=== PATIENT | male | born 1950 | race Caucasian/White ===

== ENCOUNTER 2017-01-25 12:29 | Emergency (ER) | payer MEDICARE ==
[2017-01-25 13:14] LABS: HEMOGLOBIN 14.6 gm/dl (14.0-17.5); RED BLOOD COUNT 4.69 M/UL (4.20-5.50); WHITE BLOOD COUNT 7.6 K/UL (4.5-11.0)
[2017-01-25 13:40] LABS: BUN/CREATININE RATIO 20 (0-10)
[2017-03-02] MEDS ORDERED: ASPIRIN325 MG PO (19:05)
[2017-03-07] MEDS ORDERED: PLAVIX 75 MG TA75 MG PO (13:56)
[2017-03-07] MEDS ORDERED: LIPITOR TAB 2020 MG PO (13:56)
[2017-03-07] MEDS ORDERED: FEOSOL325 MG PO (13:57)
[2017-03-07] MEDS ORDERED: LASIX20 MG PO (13:58)
[2017-03-07] MEDS ORDERED: IMDUR ER TAB 3030 MG PO (13:58)
[2017-03-07] MEDS ORDERED: TOPROL XL 100100 MG PO (13:59)
[2017-03-07] MEDS ORDERED: POTASSIUM CHLO20 ME2 PO (14:00)
[2017-03-07] MEDS ORDERED: LISINOPRIL2.5 MG PO (14:02)
== END 2017-01-25 15:25 | disposition home or self-care (01) ==
LOC: ER1 12:29
PROVIDERS: Emergency Medicine
DX: J44.1 Chronic obstructive pulmonary disease with (acute) exacerbation (principal); I25.10 Atherosclerotic heart disease of native coronary artery without angina pectoris; I25.2 Old myocardial infarction; F17.200 Nicotine dependence, unspecified, uncomplicated
CPT/HCPCS: 36415; 36600; 71010; 80053; 82550; 82553; 82803; 83874; 83880; 84484; 85025; 93005; 96374; 96375; 99291; J0696; J2930; J7030; J7050

== ENCOUNTER 2020-11-21 20:33 | Emergency (ER) | payer MEDICARE ==
[~2020-11-21 20:33] MED LIST: ALBUTEROL2.5 MG/3 M INH; ALDACTONE 25MG25 MG PO; ALDACTONE25 MG PO; AMIODARONE HCL200 MG PO; ASPIRIN325 MG PO; CARVEDILOL3.125 MG PO; COMBIVENT INH; COMBIVENT RESPIM4 GM INH; COMPAZINE10 MG PO; COREG3.125 MG PO; COREG6.25 MG PO; COZAAR 25MG TAB25 MG PO; COZAAR25 MG PO; ELIQUIS5 MG PO; ENTRESTO 24 MG1 EACH PO; FEOSOL325 MG PO; FUROSEMIDE40 MG PO; IMDUR ER TAB 3030 MG PO; K-DUR TAB 10 M10 MEQ PO; KLOR-CON 1010 MEQ PO; LASIX20 MG PO; LASIX40 MG PO; LEVOFLOXACIN500 MG PO; LEVOTHYROXINE88 MCG PO; LIPITOR TAB 2020 MG PO; LIPITOR80 MG PO; LISINOPRIL2.5 MG PO; LOPRESSOR 25 MG25 MG PO; MIDODRINE HCL10 MG PO; MULTI-VITAMIN1 EACH PO; NITROSTAT0.4 MG SL; OMNICEF 300 MG300 MG PO; PACERONE400 MG PO; PERCOCET 5/325 T1 EA PO; PLAVIX 75 MG TA75 MG PO; POTASSIUM CHLO10 ME1 PO; POTASSIUM CHLO20 ME2 PO; PREDNISONE 20 M20 MG PO; PREDNISONE10 MG PO; PROAIR DIGIHAL90 MCG INH; PROVENTIL HFA6.7 GM INH; REMERON15 MG PO; SYMBICORT 160-1 INHA INH; SYNTHROID75 MCG PO; TOPROL XL 100100 MG PO; TRELEGY ELLIPT1 EACH INH; VENTOLIN HFA 66.7 GM INH; VIBRAMYCIN 100100 MG PO; XANAX0.5 MG PO
[2020-11-21 22:18] LABS: HEMOGLOBIN 14.4 gm/dl (14.0-17.5); RED BLOOD COUNT 4.29 M/UL (4.20-5.50); WHITE BLOOD COUNT 26.6 K/UL (4.5-11.0)
[2020-11-21 22:53] LABS: BUN/CREATININE RATIO 18 (0-10)
[2020-11-21] MEDS ORDERED: PERCOCET 5/325 T1 EA PO (23:54)
== END 2020-11-22 00:35 | disposition home or self-care (01) ==
LOC: ER1 20:33
PROVIDERS: Physician Assistant
DX: J44.9 Chronic obstructive pulmonary disease, unspecified (principal); R51.9 Headache, unspecified; R07.81 Pleurodynia; I25.2 Old myocardial infarction; F17.200 Nicotine dependence, unspecified, uncomplicated
CPT/HCPCS: 70450; 71045; 80053; 82550; 82553; 83605; 83874; 84484; 85025; 87040; 93005; 99284

== ENCOUNTER 2021-04-08 18:20 | Inpatient (IN) | payer MEDICARE, MEDICAID ==
[~2021-04-08] VITALS: Ht 175.3 cm; Wt 49.0 kg
[2021-04-08 19:09] LABS: HEMOGLOBIN 15.1 gm/dl (14.0-17.5); RED BLOOD COUNT 4.58 M/UL (4.20-5.50); WHITE BLOOD COUNT 15.7 K/UL (4.5-11.0)
[2021-04-09 03:54] LABS: RED BLOOD COUNT 3.9 M/UL (4.20-5.50); WHITE BLOOD COUNT 12.9 K/UL (4.5-11.0)
[2021-04-09 03:55] LABS: HEMOGLOBIN 12.7 gm/dl (14.0-17.5)
[2021-04-10 06:57] LABS: RED BLOOD COUNT 3.71 M/UL (4.20-5.50); WHITE BLOOD COUNT 17.5 K/UL (4.5-11.0)
[2021-04-10 07:20] LABS: BUN/CREATININE RATIO 47 (0-10)
[2021-04-11 06:50] LABS: HEMOGLOBIN 11.9 gm/dl (14.0-17.5); RED BLOOD COUNT 3.72 M/UL (4.20-5.50); WHITE BLOOD COUNT 15.8 K/UL (4.5-11.0)
[2021-04-11 07:31] LABS: BUN/CREATININE RATIO 53 (0-10)
[2021-04-12 06:22] LABS: HEMOGLOBIN 11.8 gm/dl (14.0-17.5); RED BLOOD COUNT 3.66 M/UL (4.20-5.50)
[2021-04-12 06:43] LABS: BUN/CREATININE RATIO 56 (0-10)
[2021-04-13 07:32] LABS: HEMOGLOBIN 11.9 gm/dl (14.0-17.5); RED BLOOD COUNT 3.68 M/UL (4.20-5.50)
[2021-04-14 03:48] LABS: HEMOGLOBIN 11.3 gm/dl (14.0-17.5); RED BLOOD COUNT 3.47 M/UL (4.20-5.50); WHITE BLOOD COUNT 14.1 K/UL (4.5-11.0)
[2021-04-15 05:45] LABS: HEMOGLOBIN 10.9 gm/dl (14.0-17.5); RED BLOOD COUNT 3.55 M/UL (4.20-5.50); WHITE BLOOD COUNT 14.1 K/UL (4.5-11.0)
[2021-04-15 06:02] LABS: BUN/CREATININE RATIO 32 (0-10)
[2021-04-16 06:42] LABS: HEMOGLOBIN 11.6 gm/dl (14.0-17.5); RED BLOOD COUNT 3.71 M/UL (4.20-5.50); WHITE BLOOD COUNT 15.9 K/UL (4.5-11.0)
[2021-04-16 07:13] LABS: BUN/CREATININE RATIO 35 (0-10)
[2021-04-17 05:58] LABS: HEMOGLOBIN 12.6 gm/dl (14.0-17.5); RED BLOOD COUNT 4.04 M/UL (4.20-5.50); WHITE BLOOD COUNT 17.7 K/UL (4.5-11.0)
[2021-04-17 06:13] LABS: BUN/CREATININE RATIO 36 (0-10)
[2021-04-18 07:59] LABS: HEMOGLOBIN 12.4 gm/dl (14.0-17.5); WHITE BLOOD COUNT 14.4 K/UL (4.5-11.0)
[2021-04-18 08:16] LABS: BUN/CREATININE RATIO 42 (0-10)
[2021-04-19 10:19] LABS: HEMOGLOBIN 11.9 gm/dl (14.0-17.5); RED BLOOD COUNT 3.78 M/UL (4.20-5.50); WHITE BLOOD COUNT 13.1 K/UL (4.5-11.0)
[2021-04-19 10:43] LABS: BUN/CREATININE RATIO 47 (0-10)
[2021-04-20 07:33] LABS: RED BLOOD COUNT 4.12 M/UL (4.20-5.50); WHITE BLOOD COUNT 12.3 K/UL (4.5-11.0)
[2021-04-20 07:44] LABS: BUN/CREATININE RATIO 42 (0-10)
[2021-04-20 20:33] LABS: ADENOVIRUS F 40/41 Not Detected (Negative); ASTROVIRUS Not Detected (Negative); CAMPYLOBACTER Not Detected (Negative); CLOSTRIDIUM DIFFICILE TOX A/B Not Detected (Negative); CRYPTOSPORIDIUM Not Detected (Negative); E.COLI 0157 Not Detected (Negative); ENTAMOEBA HISTOLYTICA Not Detected (Negative); ENTEROAGGREGATIVE E.COLI (EAEC Not Detected (Negative); ENTEROPATHOGENIC E.COLI (EPEC) Not Detected (Negative); ENTEROTOXIGENIC E.COLI (ETEC) Not Detected (Negative); GIARDIA LAMBLIA Not Detected (Negative); NOROVIRUS GI/GII Not Detected (Negative); PLESIOMONAS SHIGELLOIDES Not Detected (Negative); ROTOVIRUS A Not Detected (Negative); SALMONELLA Not Detected (Negative); SAPOVIRUS Not Detected (Negative); SHIG/ENTEROINVAS.ECOLI (EIEC) Not Detected (Negative); SHIGA-LIK TOX.PRO.E.COLI (STEC Not Detected (Negative); VIBRIO Not Detected (Negative); VIBRIO CHOLERAE Not Detected (Negative); YERSINIA ENTEROCOLITICA Not Detected (Negative)
[2021-04-21 11:02] LABS: HEMOGLOBIN 12.6 gm/dl (14.0-17.5); RED BLOOD COUNT 3.84 M/UL (4.20-5.50)
[2021-04-21 11:32] LABS: BUN/CREATININE RATIO 39 (0-10)
[2021-04-22 06:36] LABS: HEMOGLOBIN 12.3 gm/dl (14.0-17.5); RED BLOOD COUNT 3.86 M/UL (4.20-5.50); WHITE BLOOD COUNT 10.2 K/UL (4.5-11.0)
[2021-04-22 06:56] LABS: BUN/CREATININE RATIO 37 (0-10)
[2021-04-23 06:34] LABS: HEMOGLOBIN 11.4 gm/dl (14.0-17.5); RED BLOOD COUNT 3.59 M/UL (4.20-5.50)
[2021-04-23 07:04] LABS: BUN/CREATININE RATIO 41 (0-10)
[2021-04-24 11:51] LABS: HEMOGLOBIN 11.9 gm/dl (14.0-17.5); RED BLOOD COUNT 3.81 M/UL (4.20-5.50); WHITE BLOOD COUNT 9.6 K/UL (4.5-11.0)
[2021-04-24 12:17] LABS: BUN/CREATININE RATIO 38 (0-10)
[2021-04-26 08:31] LABS: HEMOGLOBIN 12.2 gm/dl (14.0-17.5); RED BLOOD COUNT 3.83 M/UL (4.20-5.50); WHITE BLOOD COUNT 8.6 K/UL (4.5-11.0)
[2021-04-26 09:04] LABS: BUN/CREATININE RATIO 30 (0-10)
[2021-04-28 06:52] LABS: BUN/CREATININE RATIO 37 (0-10)
[2021-04-28] MEDS ORDERED: ELIQUIS5 MG PO (09:41)
[2021-04-28] MEDS ORDERED: METOPROLOL SUC100 MG PO (09:41)
[2021-04-28] MEDS ORDERED: TRELEGY ELLIPT1 EACH INH (09:41)
[2021-04-28] MEDS ORDERED: LEVOTHYROXINE88 MCG PO (09:41)
[2021-04-28] MEDS ORDERED: ALDACTONE 25MG25 MG PO (09:41)
[2021-04-28] MEDS ORDERED: PROTONIX 40 MG40 M1 PO (09:41)
[2021-04-28] MEDS ORDERED: FUROSEMIDE40 MG PO (09:41)
[2021-04-28] MEDS ORDERED: POTASSIUM CHLO10 ME1 PO (09:41)
[2021-04-28] MEDS ORDERED: ATORVASTATIN CA20 MG PO (09:41)
== END 2021-04-28 11:47 | DRG 871 ==
LOC: ER1 18:20 → CDU 04-09 01:46 → MED SURG 4 04-09 01:46
PROVIDERS: Emergency Medicine; Family Medicine; Internal Medicine; Physician Assistant Medical; ADMIT Internal Medicine
PROC: B24BZZZ Ultrasonography of Heart with Aorta (ICD-10-PCS; principal; 2021-04-09)
DX: A41.9 Sepsis, unspecified organism (principal); J18.9 Pneumonia, unspecified organism; J96.21 Acute and chronic respiratory failure with hypoxia; G93.41 Metabolic encephalopathy; I50.23 Acute on chronic systolic (congestive) heart failure; E43 Unspecified severe protein-calorie malnutrition; J96.22 Acute and chronic respiratory failure with hypercapnia; I47.2 Ventricular tachycardia; N17.9 Acute kidney failure, unspecified; R04.2 Hemoptysis; K52.1 Toxic gastroenteritis and colitis; E87.3 Alkalosis; R64 Cachexia; Z68.1 Body mass index [BMI] 19.9 or less, adult; Z20.822 Contact with and (suspected) exposure to COVID-19; I11.0 Hypertensive heart disease with heart failure; J43.9 Emphysema, unspecified; F15.10 Other stimulant abuse, uncomplicated; F17.210 Nicotine dependence, cigarettes, uncomplicated; E78.5 Hyperlipidemia, unspecified; I27.20 Pulmonary hypertension, unspecified; R65.20 Severe sepsis without septic shock; I25.10 Atherosclerotic heart disease of native coronary artery without angina pectoris; I08.3 Combined rheumatic disorders of mitral, aortic and tricuspid valves; I48.0 Paroxysmal atrial fibrillation; I25.5 Ischemic cardiomyopathy; Z96.1 Presence of intraocular lens; E03.9 Hypothyroidism, unspecified; T36.95XA Adverse effect of unspecified systemic antibiotic, initial encounter; Z79.01 Long term (current) use of anticoagulants; I25.2 Old myocardial infarction; Z95.1 Presence of aortocoronary bypass graft; Z86.73 Personal history of transient ischemic attack (TIA), and cerebral infarction without residual deficits; Z83.3 Family history of diabetes mellitus; Z82.49 Family history of ischemic heart disease and other diseases of the circulatory system; Z88.2 Allergy status to sulfonamides; Z88.8 Allergy status to other drugs, medicaments and biological substances; Z82.3 Family history of stroke; Z80.1 Family history of malignant neoplasm of trachea, bronchus and lung; Z99.81 Dependence on supplemental oxygen; Z98.42 Cataract extraction status, left eye; Z98.41 Cataract extraction status, right eye; Z95.810 Presence of automatic (implantable) cardiac defibrillator; Z79.890 Hormone replacement therapy; Z91.14 Patient's other noncompliance with medication regimen
CPT/HCPCS: ECHO; 36415; 36600; 71045; 71046; 71250; 80048; 80053; 80061; 80307; 81001; 82550; 82553; 82803; 82962; 83036; 83605; 83735; 83874; 83880; 84100; 84439; 84443; 84484; 85025; 85027; 87040; 87086; 87507; 93005; 93306; 94640; 94660; 94664; 94760; 96374; 96375; 97116; 97116-GP-CQ; 97161; 97164; 99285; J0456; J0696; J1160; J2310; J2405; J2543; J2920; J2930; J3475; J7030; Q0177; U0002; U0003